=== PATIENT | male | born 1960 | race Caucasian/White ===

== ENCOUNTER → 2017-12-18 13:42 | Outpatient (CLI) | payer OTHER, SELFPAY ==
--- NOTE | 2017-12-23 18:10 | LEAS_ITS ---
Arterial Study - Arterial Study Arterial Study: This is a 57-year-old male with numbness and paresthesias in his lower extremity. Suspecting the presence of atherosclerotic peripheral arterial occlusive disease, the patient was brought to the noninvasive vascular laboratory at this time for the purpose of bilateral noninvasive lower extremity arterial assessment. Doppler signal assessment was used to evaluate the pulses at ankle level bilaterally. The posterior tibial and dorsalis pedis pulses were triphasic bilaterally. Segmental limb pressures were obtained at ankle level bilaterally. The right ankle pressure, as determined by posterior tibial pulse, was measured at 196 mmHg. The right ankle pressure, as determined by dorsalis pedis pulse, was measured at 206 mmHg. The left ankle pressure, as determined by posterior tibial pulse, was measured at 210 mmHg. The left ankle pressure, as determined by dorsalis pedis pulse, was measured at 206 mmHg. Pulse-volume recordings were obtained bilaterally and segmentally. Waveform amplitudes appeared to be satisfactory at all levels bilaterally, including low thigh, calf, ankle, and digital levels. Resting ankle-brachial indices were calculated bilaterally. The resting right ankle-brachial index was calculated to be 1.20. The resting left ankle- brachial index was calculated to be 1.22. Impression: Based upon the findings of this resting noninvasive lower extremity arterial study, there is no evidence of significant atherosclerotic peripheral arterial occlusive disease in the lower extremities bilaterally. Triphasic waveforms were noted at ankle level bilaterally. Resting ankle-brachial indices were bilaterally normal. In summary, this represents a normal resting noninvasive lower extremity arterial study bilaterally.
== END ==
PROVIDERS: Family Provider Family Medicine; PCP Family Medicine; Visit Provider Family Medicine
DX: R20.0 Anesthesia of skin (principal); M54.5 Low back pain
CPT/HCPCS: 93923